=== PATIENT | male | born 1995 | race Caucasian/White ===

== ENCOUNTER 2019-09-14 12:12 | Emergency (ER) | payer BC ==
[~2019-09-14] VITALS: Ht 182.9 cm; Wt 79.7 kg
[2019-09-14 12:33] VITALS: BP 123/87
--- NOTE | 2019-09-14 12:42 | NUR ---
SLING PLACED TO RUE TO XRAY AT 1240P
== END 2019-09-14 14:10 | disposition home or self-care (01) ==
LOC: ED 14:04
DX: S42.031A Displaced fracture of lateral end of right clavicle, initial encounter for closed fracture (principal); S63.502A Unspecified sprain of left wrist, initial encounter; X58.XXXA Exposure to other specified factors, initial encounter; Y93.55 Activity, bike riding; Y92.488 Other paved roadways as the place of occurrence of the external cause; Y99.8 Other external cause status
CPT/HCPCS: 99284